=== PATIENT | female | born 1995 ===

== ENCOUNTER 2025-04-10 18:24 | Outpatient (CLI) | payer MEDICAID, SELFPAY | END 2025-04-10 18:25 | disposition home or self-care (01) | PROVIDERS: Visit Provider Advanced Practice Midwife | DX: Z34.91 Encounter for supervision of normal pregnancy, unspecified, first trimester (principal) | CPT/HCPCS: 36415; 81220; 81222 ==

== ENCOUNTER 2025-05-20 11:42 | Outpatient (CLI) | payer MEDICAID, SELFPAY ==
[2025-05-20 12:35] LABS: Abs Immature Grans 0.06 10^3/uL (0.0-0.06); HCT 34.9 % (36.0-46.0); HGB 12.2 g/dL (11.2-15.7); Immature Grans % 0.8 %; MCH 32.8 pg (27.0-33.0); MCHC 35.0 % (32.0-36.0); MCV 94 fL (80-95); MPV 10.3 fL (8.0-11.0); Platelet Count 186 10^3/uL (130-400); RBC 3.72 10^6/uL (3.93-5.22); RDW 13.0 % (11.7-14.6); RDW-SD 44.4 fL; WBC 8.00 10^3/uL (4.4-10.8)
[2025-05-22 10:12] LABS: Hepatitis C Ab w Rflx HCV PCR Negative (Negative)
[2025-05-22 10:33] LABS: HIV-1/2 Ag & Ab Screen Negative (Negative)
[2025-05-22 10:54] LABS: Rubella IgG Ab (UVM) Positive (See Note)
[2025-05-24 14:39] LABS: Syphilis IgG w/Reflex Nonreactive (Nonreactive)
== END 2025-05-20 11:43 | disposition home or self-care (01) ==
LOC: LBO 11:48
PROVIDERS: Visit Provider Advanced Practice Midwife
DX: Z34.91 Encounter for supervision of normal pregnancy, unspecified, first trimester (principal)
CPT/HCPCS: 36415; 86787; 86803; 86850; 86900; 86901; 87340; 87389; 85025; 86762; 86780

== ENCOUNTER 2025-05-20 15:53 | Outpatient (REF) | payer MEDICAID, SELFPAY ==
[2025-05-22 11:41] LABS: Chlamydia Result Negative (Negative); GC Result Negative (Negative)
== END 2025-05-20 15:54 | disposition home or self-care (01) ==
LOC: LBN 15:53
PROVIDERS: Visit Provider Advanced Practice Midwife
DX: Z34.91 Encounter for supervision of normal pregnancy, unspecified, first trimester (principal)
CPT/HCPCS: 87491; 87591; 87086

== ENCOUNTER → 2025-06-03 02:13 | Outpatient (CLI) | payer MEDICAID, SELFPAY ==
--- NOTE | 2025-06-03 07:30 | DI.US_ITS ---
Exam(s) US OB 2-3 TRIMESTER EXAM: US OB 2-3 TRIMESTER CLINICAL HISTORY: Routine Anatomy Ultrasound Z34.91 NORMAL . TECHNIQUE: Transabdominal obstetrical ultrasound performed. COMPARISON: US POCUS EXAM from 04/10/2025 FINDINGS: Number of fetuses: 1 position: VARIED heart rate: 143bpm Placental location: There is a grade 1 anterior placenta. No evidence of previa. Amniotic fluid index: Amount of fluid is within normal limits. ANATOMICAL SURVEY: Within normal limits. BIOMETRIC DATA: BPD: 4.54cm, 19weeks 5days HC: 17.12cm, 19weeks 5days AC: 14.43cm, 19weeks 5days FL: 3.05cm, 19weeks 3days Cisterna magna: 3.3mm Cerebellum: 1.87cm Lateral ventricle: 0.6 cm EFW: 303.23g, 0.68lb, 40% Composite Age: 19weeks 5days ANGELO: 10/23/2025 Heart Rate: 143bpm ANATOMICAL SURVEY: Four-chambered heart: Unremarkable. RVOT: Unremarkable. LVOT: Unremarkable. Left-sided stomach: Unremarkable. urinary bladder: Unremarkable. Bilateral kidneys: Unremarkable. Three-vessel cord: Unremarkable. Cord insertion: Unremarkable. Posterior fossa: Unremarkable. ventricles: Unremarkable. nose/lips: Unremarkable. Palate: Unremarkable. spine: Unremarkable. Two arms and two legs: Unremarkable. IMPRESSION: 1. Single live intrauterine gestation as above. 2. Normal anatomic survey. DATA REPOSITORY:
== END ==
LOC: DI 02:13
PROVIDERS: Visit Provider Advanced Practice Midwife
DX: Z34.92 Encounter for supervision of normal pregnancy, unspecified, second trimester (principal); Z3A.19 19 weeks gestation of pregnancy
CPT/HCPCS: 76805